=== PATIENT | female | born 1985 | race Caucasian/White ===

== ENCOUNTER → 2017-03-23 | Outpatient (CLI) | payer OTHER ==
--- NOTE | 2017-03-23 17:43 | RAD ---
Limited right breast ultrasound 03/23/2017 Clinical indication: Right breast mass. Comparison: None. Findings: Patient and patient's physician felt palpable abnormalities in the upper outer right breast. Survey of the upper outer right breast was performed demonstrating a simple appearing cyst at the 11:00 position 2 cm from the nipple measuring up to 0.3 cm. Impression: In the area of palpable abnormality in the upper outer left breast, small benign cyst. Further imaging evaluation should be based on clinical assessment. BI-RADS CATEGORY: 2 BENIGN FINDING(S) RECOMMENDED FOLLOW-UP: CLIN FOLLOW UP IMAGING CLINICALLY INDICATED PQRS compliance statement: Patient information was entered into a reminder system with a target due date for the next mammogram. Mammography is a sensitive method for finding small breast cancers, but it does not detect them all and is not a substitute for careful clinical examination. A negative mammogram does not negate a clinically suspicious finding and should not result in delay in biopsying a clinically suspicious abnormality. "Our facility is accredited by the [employer] [place] [employer] Mammography [employer]."
== END | disposition home or self-care (01) ==
LOC: US 12:58
PROVIDERS: ATTEND Nurse Practitioner Family
DX: N63.11 Unspecified lump in the right breast, upper outer quadrant (principal)
CPT/HCPCS: 76641